=== PATIENT | male | born 1950 | race African-American/Black ===

== ENCOUNTER 2017-09-18 05:52 | Inpatient (IN) | payer MEDICARE, OTHER ==
[2017-09-18 06:30] LABS: AGAP ISTAT 13 mmol/L (6-14); BUN ISTAT 16 mg/dL (8-26); CHLORIDE ISTAT 95 mmol/L (98-110); CREATININE ISTAT 1.3 mg/dL (0.5-1.4); GLUCOSE ISTAT 180 mg/dL (70-99); HEMATOCRIT ISTAT 36 % (37-52); HEMOGLOBIN ISTAT 12.2 g/dL (14-18); ION CA ISTAT 1.08 mmol/L (1.13-1.32); POTASSIUM ISTAT 2.9 mmol/L (3.5-5.0); SODIUM ISTAT 134 mmol/L (135-145); TOT CO2 ISTAT 31 mmol/L (23-32)
[2017-09-18 06:40] LABS: ANION GAP 13 (6-14); BLOOD UREA NITROGEN 17 mg/dL (8-26); BUN/CREATININE RATIO 13 (6-20); CARBON DIOXIDE 29 mmol/L (21-32); CHLORIDE 95 mmol/L (98-107); CREATININE 1.3 mg/dL (0.7-1.3); GLUCOSE 173 mg/dL (70-99); POTASSIUM 3.4 mmol/L (3.5-5.1); SODIUM 137 mmol/L (136-145)
[2017-09-18 06:45] LABS: ALBUMIN 3.3 g/dL (3.4-5.0); ALBUMIN/GLOBULIN RATIO 0.8 (1.0-1.7); ALK PHOS 102 U/L (46-116); ALT (SGPT) 159 U/L (16-63); AST (SGOT) 111 U/L (15-37); TOTAL BILIRUBIN 1.2 mg/dL (0.2-1.0); TOTAL PROTEIN 7.6 g/dL (6.4-8.2)
[2017-09-18] MEDS: POTASSIUM CHLORIDE 20 MEQ TABLET.ER. PO ×4 (06:48→13:42)
[2017-09-18] MEDS: IV NORMAL SALINE 1000ML BAG 1,000 ML IV ×2 (06:49)
[2017-09-18 06:54] LABS: BASO # 0.1 x10^3/uL (0.0-0.2); BASO % 1 % (0-3); EOS % 0 % (0-3); HEMATOCRIT 34.8 % (39.0-53.0); HEMOGLOBIN 12.3 g/dL (13.0-17.5); LYMPH # 2.2 x10^3/uL (1.0-4.8); LYMPH % 11 % (24-48); MEAN CORPUSCULAR HEMOGLOBIN 28 pg (25-35); MEAN CORPUSCULAR HGB CONC 35 g/dL (31-37); MEAN CORPUSCULAR VOLUME 80 fL (79-100); MONO # 2.1 x10^3/uL (0.0-1.1); MONO % 10 % (0-9); NEUT # 16.3 x10^3uL (1.8-7.7); NEUT % 79 % (31-73); PLATELET COUNT 402 x10^3/uL (140-400); RED BLOOD COUNT 4.37 x10^6/uL (4.30-5.70); WHITE BLOOD COUNT 20.7 x10^3/uL (4.0-11.0)
[2017-09-18 07:13] LABS: ADD MAN DIFF? YES
[2017-09-18] MEDS ORDERED: CONTRAST GIVEN MC ×2 (07:15)
[2017-09-18] MEDS: IOHEXOL 300 MG/ML 100ML VIAL. IV ×2 (07:16)
[2017-09-18 07:34] LABS: LACTIC ACID 1.2 mmol/L (0.4-2.0)
[2017-09-18 08:14] LABS: BILIRUBIN,URINE NEGATIVE (NEG); CLARITY,URINE CLEAR; COLOR,URINE YELLOW; GLUCOSE,URINE NEGATIVE (NEG); NITRITE,URINE NEGATIVE (NEG); PH,URINE 5.5; PROTEIN,URINE NEGATIVE (NEG-TRACE)
[2017-09-18 08:28] LABS: INFLUENZA A PATIENT NEGATIVE (NEGATIVE); INFLUENZA B PATIENT NEGATIVE (NEGATIVE); OBC FLU VALID
[2017-09-18 08:35] LABS: BACTERIA,URINE FEW /HPF (0-FEW); RBC,URINE 0 /HPF (0-2); WBC,URINE 20-40 /HPF (0-4)
[2017-09-18] MEDS ORDERED: ONDANSETRON PF 4 MG/2 ML VIAL. IV ×4 (09:00→12:00)
[2017-09-18] MEDS ORDERED: fentaNYL PF VIAL 100 MCG/2 ML VIAL IV ×2 (09:00)
[2017-09-18 11:19] LABS: POC GLUCOSE 142 mg/dL (70-99)
[2017-09-18 11:54] LABS: % BANDS 4 % (0-9); % BASOS 1 % (0-3); % LYMPHS 16 % (24-48); % MONOS 8 % (0-10); % MYELOS 1 % (0-0); % SEGS 70 % (35-66); PLT ESTIMATE ADEQUATE (ADEQUATE); TOXIC VACUOLATION PRESENT
[2017-09-18] MEDS: INSULIN ASPART 300 UNITS/3 ML INSULN.PEN SQ ×6 (12:00→17:09)
[2017-09-18] MEDS ORDERED: HYDROcodone/APAP 5/325MG 1 TAB TABLET PO ×2 (12:00)
[2017-09-18] MEDS ORDERED: DEXTROSE 50% 25 GM / 50ML DISP.SYRIN. IV ×2 (12:00)
[2017-09-18] MEDS ORDERED: diphenhydrAMINE HCL 25 MG CAPSULE PO ×2 (12:00)
[2017-09-18] MEDS ORDERED: LINAGLIPTIN 5 MG TABLET PO ×2 (12:30)
[2017-09-18] MEDS ORDERED: CELECOXIB 100 MG CAPSULE. PO ×2 (12:30)
[2017-09-18] MEDS ORDERED: hydroCHLOROthiazide 25 MG TABLET PO ×2 (12:30)
[2017-09-18] MEDS ORDERED: ASPIRIN ENTERIC COATED 81 MG TABLET.DR. PO ×2 (12:30)
[2017-09-18] MEDS ORDERED: LEVOTHYROXINE 125 MCG TABLET PO ×2 (12:30)
[2017-09-18] MEDS: INSULIN DETEMIR 300 UNITS/3 ML INSULN.PEN. SQ ×4 (13:48→21:32)
[2017-09-18 16:38] LABS: POC GLUCOSE 219 mg/dL (70-99)
[2017-09-18 16:40] LABS: LACTIC ACID 1.8 mmol/L (0.4-2.0)
[2017-09-18] MEDS: ACETAMINOPHEN 325 MG TABLET. PO ×2 (18:22)
[2017-09-18] MEDS: FAMOTIDINE 20 MG TABLET. PO ×2 (21:26)
[2017-09-18] MEDS: FENOFIBRATE,MICRONIZED 134 MG CAPSULE PO ×2 (21:26)
[2017-09-18] MEDS: LACTOBACILLUS RHAMNOSUS GG 1 CAPSULE. PO ×2 (21:26)
[2017-09-18] MEDS: SIMVASTATIN 10 MG TABLET PO ×2 (21:27)
[2017-09-18] MEDS: LOSARTAN POTASSIUM 50 MG TABLET. PO ×2 (21:27)
[2017-09-18 21:43] LABS: POC GLUCOSE 151 mg/dL (70-99)
[2017-09-18] MEDS: EZETIMIBE 10 MG TABLET. PO ×2 (22:27)
[2017-09-19] MEDS: ACETAMINOPHEN 325 MG TABLET. PO ×4 (00:54→12:19)
[2017-09-19 01:58] LABS: ADD MAN DIFF? NO
[2017-09-19] MEDS: IV NORMAL SALINE 1000ML BAG 1,000 ML IV ×6 (01:59→17:05)
[2017-09-19 02:00] LABS: BASO # 0.1 x10^3/uL (0.0-0.2); BASO % 1 % (0-3); EOS % 0 % (0-3); HEMATOCRIT 33.4 % (39.0-53.0); HEMOGLOBIN 11.6 g/dL (13.0-17.5); LYMPH # 2.1 x10^3/uL (1.0-4.8); LYMPH % 13 % (24-48); MEAN CORPUSCULAR HEMOGLOBIN 28 pg (25-35); MEAN CORPUSCULAR HGB CONC 35 g/dL (31-37); MEAN CORPUSCULAR VOLUME 80 fL (79-100); MONO # 1.6 x10^3/uL (0.0-1.1); MONO % 10 % (0-9); NEUT % 76 % (31-73); PLATELET COUNT 400 x10^3/uL (140-400); RED CELL DISTRIBUTION WIDTH 14.9 % (11.5-14.5); WHITE BLOOD COUNT 15.8 x10^3/uL (4.0-11.0)
[2017-09-19] MEDS: LEVOTHYROXINE 125 MCG TABLET PO ×2 (06:29)
[2017-09-19 07:06] LABS: POC GLUCOSE 63 mg/dL (70-99)
[2017-09-19 07:36] LABS: POC GLUCOSE 104 mg/dL (70-99)
[2017-09-19] MEDS: INSULIN DETEMIR 300 UNITS/3 ML INSULN.PEN. SQ ×4 (08:00→21:00)
[2017-09-19] MEDS: INSULIN ASPART 300 UNITS/3 ML INSULN.PEN SQ ×8 (08:00→17:00)
[2017-09-19] MEDS: glipiZIDE ER 2.5 MG TAB.ER.24 PO ×2 (08:24)
[2017-09-19] MEDS: hydroCHLOROthiazide 25 MG TABLET PO ×2 (08:24)
[2017-09-19] MEDS: LACTOBACILLUS RHAMNOSUS GG 1 CAPSULE. PO ×4 (08:25→21:49)
[2017-09-19] MEDS: LINAGLIPTIN 5 MG TABLET PO ×2 (08:25)
[2017-09-19] MEDS: POTASSIUM CHLORIDE 20 MEQ TABLET.ER. PO ×2 (08:25)
[2017-09-19] MEDS: CELECOXIB 100 MG CAPSULE. PO ×2 (08:25)
[2017-09-19] MEDS: cefTRIAXone IV Push 1 GM VIAL. IVP ×2 (08:28)
[2017-09-19] MEDS: ASPIRIN ENTERIC COATED 81 MG TABLET.DR. PO ×2 (08:28)
[2017-09-19 11:15] LABS: POC GLUCOSE 140 mg/dL (70-99)
[2017-09-19 21:43] LABS: POC GLUCOSE 134 mg/dL (70-99)
[2017-09-19] MEDS: FAMOTIDINE 20 MG TABLET. PO ×2 (21:47)
[2017-09-19] MEDS: SIMVASTATIN 10 MG TABLET PO ×2 (21:47)
[2017-09-19] MEDS: FENOFIBRATE,MICRONIZED 134 MG CAPSULE PO ×2 (21:48)
[2017-09-19] MEDS: EZETIMIBE 10 MG TABLET. PO ×2 (21:48)
[2017-09-19] MEDS: LOSARTAN POTASSIUM 50 MG TABLET. PO ×2 (21:48)
[2017-09-20 05:25] LABS: ADD MAN DIFF? NO
[2017-09-20 05:51] LABS: ANION GAP 8 (6-14); BLOOD UREA NITROGEN 13 mg/dL (8-26); CALCIUM 9.3 mg/dL (8.5-10.1); CARBON DIOXIDE 30 mmol/L (21-32); CHLORIDE 99 mmol/L (98-107); CREATININE 1.1 mg/dL (0.7-1.3); GFR 81.3; GLUCOSE 88 mg/dL (70-99); SODIUM 137 mmol/L (136-145)
[2017-09-20 05:54] LABS: POTASSIUM 2.9 mmol/L (3.5-5.1)
[2017-09-20 06:06] LABS: BASO # 0.1 x10^3/uL (0.0-0.2); BASO % 1 % (0-3); EOS # 0.1 x10^3/uL (0.0-0.7); EOS % 1 % (0-3); HEMATOCRIT 35.4 % (39.0-53.0); LYMPH # 2.6 x10^3/uL (1.0-4.8); LYMPH % 19 % (24-48); MEAN CORPUSCULAR HEMOGLOBIN 27 pg (25-35); MEAN CORPUSCULAR HGB CONC 34 g/dL (31-37); MEAN CORPUSCULAR VOLUME 81 fL (79-100); MONO # 1.2 x10^3/uL (0.0-1.1); MONO % 9 % (0-9); NEUT # 9.8 x10^3uL (1.8-7.7); NEUT % 71 % (31-73); PLATELET COUNT 427 x10^3/uL (140-400); RED BLOOD COUNT 4.38 x10^6/uL (4.30-5.70); RED CELL DISTRIBUTION WIDTH 15.3 % (11.5-14.5); WHITE BLOOD COUNT 13.8 x10^3/uL (4.0-11.0)
[2017-09-20] MEDS: IV NORMAL SALINE 1000ML BAG 1,000 ML IV ×2 (06:13)
[2017-09-20] MEDS: LEVOTHYROXINE 125 MCG TABLET PO ×2 (06:14)
[2017-09-20 06:55] LABS: POC GLUCOSE 95 mg/dL (70-99)
[2017-09-20] MEDS: INSULIN ASPART 300 UNITS/3 ML INSULN.PEN SQ ×4 (08:00→12:11)
[2017-09-20] MEDS: INSULIN DETEMIR 300 UNITS/3 ML INSULN.PEN. SQ ×2 (08:00)
[2017-09-20] MEDS: POTASSIUM CHLORIDE 20 MEQ TABLET.ER. PO ×4 (08:16→12:09)
[2017-09-20] MEDS: ASPIRIN ENTERIC COATED 81 MG TABLET.DR. PO ×2 (08:16)
[2017-09-20] MEDS: LACTOBACILLUS RHAMNOSUS GG 1 CAPSULE. PO ×2 (08:16)
[2017-09-20] MEDS: CELECOXIB 100 MG CAPSULE. PO ×2 (08:16)
[2017-09-20] MEDS: hydroCHLOROthiazide 25 MG TABLET PO ×2 (08:17)
[2017-09-20] MEDS: LINAGLIPTIN 5 MG TABLET PO ×2 (08:17)
[2017-09-20] MEDS: glipiZIDE ER 2.5 MG TAB.ER.24 PO ×2 (08:18)
[2017-09-20] MEDS: cefTRIAXone IV Push 1 GM VIAL. IVP ×2 (09:17)
[2017-09-20 11:16] LABS: POC GLUCOSE 182 mg/dL (70-99)
[2017-09-20] MEDS ORDERED: POTASSIUM CHLORIDE 20 MEQ TABLET.ER. PO ×2 (12:19)
[2017-09-21 21:47] LABS: POC GLUCOSE 76 mg/dL (70-99)
== END 2017-09-20 12:45 | disposition home or self-care (01) | DRG 872 ==
LOC: ER 05:52 → 5 SOUTH 08:55
DX: A41.9 Sepsis, unspecified organism (principal); E87.1 Hypo-osmolality and hyponatremia; N39.0 Urinary tract infection, site not specified; E87.6 Hypokalemia; E11.9 Type 2 diabetes mellitus without complications; E78.00 Pure hypercholesterolemia, unspecified; I10 Essential (primary) hypertension; Z82.49 Family history of ischemic heart disease and other diseases of the circulatory system; E89.0 Postprocedural hypothyroidism
CPT/HCPCS: 36415; 70450; 71045; 74177; 80047; 80048; 80053; 81001; 82962; 83605; 84132; 84484; 85007; 85025; 87040; 87086; 87186; 87804; 87804-59; 93005; 96361; 96365; 97110-GP; 97161-GP; 99285; 99285-25; J0690; J0696; J1815; J7030; Q9967

== ENCOUNTER 2017-12-21 10:56 | Emergency (ER) | payer OTHER, MEDICARE ==
[2017-12-21] MEDS: NEOMY/BACITR/POLYMYXIN OINT PACKET. TP (12:11)
[2017-12-21] MEDS: DIPHTH,PERTUSS(ACELL),TET TOX 0.5 ML DISP.SYRIN. VAX IM (12:14)
== END 2017-12-21 14:06 | disposition home or self-care (01) ==
LOC: ER 10:56
DX: S51.812A Laceration without foreign body of left forearm, initial encounter (principal); S81.812A Laceration without foreign body, left lower leg, initial encounter; M25.512 Pain in left shoulder; E11.9 Type 2 diabetes mellitus without complications; I10 Essential (primary) hypertension; E78.00 Pure hypercholesterolemia, unspecified; V43.52XA Car driver injured in collision with other type car in traffic accident, initial encounter; Y93.I9 Activity, other involving external motion; Y92.410 Unspecified street and highway as the place of occurrence of the external cause; Y99.8 Other external cause status
CPT/HCPCS: 73030; 73090; 73130; 73590; 90471; 90715; 99284

== ENCOUNTER → 2018-02-05 | Outpatient (CLI) | payer MEDICARE, OTHER ==
[~2018-02-05] MED LIST: BUPIVACAINE MPF 0.25% 30 ML VIAL.; IOHEXOL 180 MG/ML 10 ML VIAL.; LIDOCAINE 1% PF 2 ML VIAL.; methylPREDNISolone ACETATE 80 MG/ML VIAL.
== END | disposition home or self-care (01) ==
LOC: PNCL 10:02
DX: M19.012 Primary osteoarthritis, left shoulder (principal); I10 Essential (primary) hypertension; E11.9 Type 2 diabetes mellitus without complications; K21.9 Gastro-esophageal reflux disease without esophagitis; I25.10 Atherosclerotic heart disease of native coronary artery without angina pectoris; E78.00 Pure hypercholesterolemia, unspecified; F17.210 Nicotine dependence, cigarettes, uncomplicated; E89.0 Postprocedural hypothyroidism; Z79.4 Long term (current) use of insulin; Z79.899 Other long term (current) drug therapy; Z79.82 Long term (current) use of aspirin; Z72.89 Other problems related to lifestyle
CPT/HCPCS: 20610; 77002; J1040; J3490; Q9965

== ENCOUNTER → 2018-02-26 | Outpatient (CLI) | payer MEDICARE, OTHER | END | disposition home or self-care (01) | LOC: PNCL 10:44 | DX: M19.012 Primary osteoarthritis, left shoulder (principal) | CPT/HCPCS: G0463 ==

== ENCOUNTER → 2018-03-15 | Outpatient (CLI) | payer MEDICARE, OTHER | END | disposition home or self-care (01) | LOC: MRI 15:01 | DX: S43.432A Superior glenoid labrum lesion of left shoulder, initial encounter (principal); S46.812A Strain of other muscles, fascia and tendons at shoulder and upper arm level, left arm, initial encounter; M75.102 Unspecified rotator cuff tear or rupture of left shoulder, not specified as traumatic; I25.10 Atherosclerotic heart disease of native coronary artery without angina pectoris; K21.9 Gastro-esophageal reflux disease without esophagitis; I10 Essential (primary) hypertension; E87.6 Hypokalemia; E11.9 Type 2 diabetes mellitus without complications; E78.00 Pure hypercholesterolemia, unspecified; Z79.82 Long term (current) use of aspirin; Z79.4 Long term (current) use of insulin; Z79.899 Other long term (current) drug therapy; X58.XXXA Exposure to other specified factors, initial encounter; Y93.89 Activity, other specified; Y92.89 Other specified places as the place of occurrence of the external cause; Y99.8 Other external cause status | CPT/HCPCS: 73221 ==

== ENCOUNTER → 2019-01-21 | Outpatient (CLI) | payer MEDICARE, OTHER ==
[2017-12-21 13:30] VITALS: BP 121/61
[~2019-01-21] MED LIST changes: +AMOX1TAB11 PO; +ASPI-482 PO; -BUPIVACAINE MPF 0.25% 30 ML VIAL.; +CELE100C PO; +CYCL10TA2 PO; +EZET10TA48 PO; +FENO145T30 PO; +GLIP10TA24 PO; +HYDR-2145 PO; +INSU100C4 SQ; +INSU100I13 SQ; -IOHEXOL 180 MG/ML 10 ML VIAL.; +LEVO125T5 PO; -LIDOCAINE 1% PF 2 ML VIAL.; +LOSA100T14 PO; +NIFE30TA15 PO; +POTA20TA82 PO; +RANI150T2 PO; +SIMV10TA3 PO; +SITA100T PO; -methylPREDNISolone ACETATE 80 MG/ML VIAL.
--- NOTE | 2019-01-21 16:58 | KCIC ---
MR of the left shoulder HISTORY: Left shoulder pain, chronic. TECHNIQUE: Routine multiplanar sequences are obtained. FINDINGS: Acromioclavicular joint is mildly degenerative. Rotator cuff tendon thickening and signal compatible with tendinosis. Partial-thickness undersurface tear of the anterior supraspinatus tendon measures about 15 mm AP diameter and is 90% deep. This extends from the footplate through the critical zone. No complete full-thickness rupture. Mild interstitial tearing of the subscapularis tendon. Mild subdeltoid bursal effusion. No significant glenohumeral joint effusion. Mild degenerative changes of the glenohumeral joint. Mild degenerative signal within the posterosuperior labrum. No clear-cut labral detachment. Biceps tendon appears intact. No bone destruction or acute fracture. No acute soft tissue abnormality. IMPRESSION: 1. Rotator cuff tendinosis. Deep articular side tear of the supraspinatus tendon, mild subscapularis tendon tear. 2. Posterosuperior labral degeneration. Electronically signed by: James Clark MD (01/21/2019 4:55 PM) [facility]
== END | disposition home or self-care (01) ==
LOC: KCIC MRI 15:43
PROVIDERS: ATTEND Orthopaedic Surgery Sports Medicine
DX: M19.012 Primary osteoarthritis, left shoulder (principal); M75.102 Unspecified rotator cuff tear or rupture of left shoulder, not specified as traumatic; M25.412 Effusion, left shoulder; G89.29 Other chronic pain
CPT/HCPCS: 73221

== ENCOUNTER → 2019-02-25 | Day surgery (SDC) | payer MEDICARE, OTHER ==
[~2019-02-25] VITALS: Ht 177.8 cm; Wt 104.3 kg
[~2019-02-25] MED LIST changes: +0.9 % SODIUM CHLORIDE 20 ML VIAL. IJ ONE; +BUPIVACAINE MPF 0.5% 30 ML VIAL. ONE; +DEXAMETHASONE SOD PHOS 20 MG/5 ML VIAL. ONE; +DEXAMETHASONE SOD PHOS 4 MG/ML VIAL ONE; +DOCU-109 PO; +EPINEPHrine 1 MG/ML VIAL ONE; +EPINEPHrine VIAL 30 MG/30 ML VIAL ONE; +ESMOLOL 100 MG/10 ML VIAL. IVP ONE; +FAMOTIDINE 20 MG/2 ML VIAL ONE; +GLYCOPYRROLATE 1 MG/5 ML VIAL. ONE; +HYDROmorphone 2 MG/ML VIAL IV PRN; +INSULIN LISPRO 100 UNIT/ML 3ML VIAL for OP,RR ONLY. SQ PRN; +IV RINGERS,LACTATED 1000ML 1,000 ML IV SCH; +KETOROLAC 30 MG/ML VIAL. IV ONE; +KETOROLAC 30 MG/ML VIAL. ONE; +LABETALOL 20 MG/4 ML DISP.SYRIN. IVP PRN; +LIDOCAINE 1% 20 ML VIAL. ONE; +LIDOCAINE 1% PF 2 ML VIAL. ID PRN; +LIDOCAINE 2% PF 5 ML VIAL. ONE; +LORA10TA3 PO; +MIDAZOLAM HCL/PF 2 MG/2 ML VIAL. ONE; +MORPHINE SULFATE 2 MG/ML VIAL. IV PRN; +MORPHINE SULFATE 2 MG/ML VIAL. ONE; +NEOSTIGMINE METHYLSULFATE 5 MG/5 ML SYRINGE. ONE; +ONDA8TAB9 PO; +ONDANSETRON PF 4 MG/2 ML VIAL. IV PRN; +ONDANSETRON PF 4 MG/2 ML VIAL. ONE; +OXYC1TAB15 PO; +PHENYLEPHRINE in 0.9% NACL PF 1 MG/10 ML SYRINGE. IV ONE; +PROCHLORPERAZINE 10 MG/2 ML VIAL. IV PRN; +PROPOFOL 20 ML IV ONE; +ROCURONIUM 50 MG/5 ML VIAL. ONE; +SEVOFLURANE 61 TO 120 MINUTES. IH ONE; +ceFAZolin 2GM PREMIX 2 GM/50 ML BAG IV ONE; +fentaNYL PF VIAL 100 MCG/2 ML VIAL IV PRN; +fentaNYL PF VIAL 100 MCG/2 ML VIAL ONE; +hydrALAZINE 20 MG/ML VIAL. IVP PRN; +hydrALAZINE 20 MG/ML VIAL. ONE; +hydroCHLOROthiazide 25 MG TABLET PO ONE; +oxyCODONE/APAP 5/325 1 TAB TABLET PO ONE
--- NOTE | 2019-02-25 08:46 | DISCH ---
DISCHARGE INSTRUCTIONS Condition on Discharge Condition on Discharge: Stable Activity After Discharge Activity Instructions for Disc: No restrictions, Other ROM activity Other activity instructions: arm to remain in sling Driving Instructions after Dis: Do not drive today Weight Bearing Status after Di: Non weight bearing Diet after Discharge Diet after Discharge: Regular, Diabetic No Calorie Level Diet Texture: Regular Wound Incision Care Wound/Incision Care: Ice to area for comfort, Keep wound/cast CDI, Change dressing Other wound/incision instructi: okay to change dressing after 2 days Contacting the DRPamela after DC Call your doctor for: Concerns you may have Follow-Up Follow up with: Sosa in 2 weeks Treatment/Equipment after DC Adaptive Equipment Issued: None SHREE DELGADO II, MD Feb 25, 2019 08:46
--- NOTE | 2019-02-25 08:54 | PDOC4 ---
Operative Note Operative Note Date of procedure: 02/25/2019 Surgeon: Ilia Delgado [employer] Leakage: Deidre Borges, certified adaptive physical educator Preoperative diagnosis: Incomplete left shoulder rotator cuff tear Postoperative diagnosis same Procedure performed: Arthroscopic left shoulder rotator cuff repair Anesthesia: Gen. plus regional nerve block Blood loss: 5 mL Findings: #1 tendinosis and softening at rotator cuff #2 small amount of degenerative fraying of labrum, labrum intact circumferentially #3 small amount of inflammatory changes and biceps, normal-appearing otherwise, intact to labrum #4 unremarkable glenohumeral cartilage #5 no loose bodies Components inserted: Bergman and nephew Helacoil suture anchor �1 Complications: None Reason for procedure: Patient is a very pleasant 69-year-old gentleman with long-standing left shoulder pain who had seen in my outpatient orthopedic surgery clinic. Clinical and radiographic evidence were consistent with the preoperative diagnosis. He had tried and failed conservative therapies including an exercise program and injections and despite this his pain was progressive and we had a discussion of the risks, benefits, and alternatives to the above surgery and he wished to proceed. Description of procedure: Patient was greeted in the preoperative area by myself for the correct extremity was verified and marked. He was taken to the operative suite and his antibiotics were started as he was brought back. Once in the operating room, he was transferred gently supine to the operating room table and secured to the bed with all pressure points padded. He was sat up in a beachchair position with a large pad under his legs. His C-spine was maintained in neutral position. We then proceeded to prep and drape left upper extremity and shoulder girdle in our usual sterile fashion including Ioban at the periphery. Standard preoperative timeout was conducted. I then palpated and marked surface anatomy. I used a spinal needle to localize a posterior superior portal and introduced the blunt arthroscopic trocar into the glenohumeral joint after incising skin. The camera was then introduced and I used a spinal needle to localize an anterosuperior portal, I incised skin in accordance with this and dilated this well. I then introduce my probe and conducted my diagnostic arthroscopy with the above-noted findings. Upon inspecting his rotator cuff, I passed a PDS suture through it using a spinal needle to lopez the area pathologic change. I then repositioned the camera into the subacromial space and created a lateral portal under spinal needle localization as well. I then performed a b ursectomy. There is large amount of hemorrhagic-appearing tissue. After the bursectomy, I identified my PDS suture from the bursal side and was easily able to violate the substance of the rotator cuff with a blunt tipped device. I then remove the PDS suture and used my shaver to debride the rotator cuff, I did not complete the tear all the way as the tendon at this area was not able to be debrided with the shaver. I then prepared my footprint, taking care not to decorticate the area. I then used an awl and then placed my suture anchor. I created an accessory anterolateral portal for suture management shuttled the suture limbs through this. I then used my Bridestory suture passing device to shuttle the suture limbs through in a simple configuration tied these down with arthroscopic knot-tying techniques. His tear was stable to probing and gentle rotation of his arm. I took my final pictures and then removed the excess arthroscopic fluid and instrumentation. His skin was then closed with simple interrupted 2-0 nylon. A sterile bulky dressing was applied. His left upper gently was in place into an abduction pillow sling. He was awakened from anesthesia after being laid supine. He was transferred gently supine to the hospital bed and taken to the PACU in a stable and extubated condition. Postoperative plan is to get him started on physical therapy this week. He'll be nonweightbearing. I will see him back in 2 weeks, sooner should a problem arise. ILIA DELGADO II, MD Feb 25, 2019 08:54
[2019-02-25] MEDS: fentaNYL PF VIAL 100 MCG/2 ML VIAL IV PRN ×3 (09:05→09:50)
[2019-02-25] MEDS: LABETALOL 20 MG/4 ML DISP.SYRIN. IVP PRN ×2 (09:15→09:45)
[2019-02-25 10:50] VITALS: BP 174/82
== END ==
LOC: SURG 05:42
PROVIDERS: ATTEND Orthopaedic Surgery Sports Medicine
DX: M75.112 Incomplete rotator cuff tear or rupture of left shoulder, not specified as traumatic (principal); M24.112 Other articular cartilage disorders, left shoulder; E11.9 Type 2 diabetes mellitus without complications; I10 Essential (primary) hypertension; E89.0 Postprocedural hypothyroidism; E78.5 Hyperlipidemia, unspecified; F17.210 Nicotine dependence, cigarettes, uncomplicated; Z79.899 Other long term (current) drug therapy; Z98.890 Other specified postprocedural states; Z79.82 Long term (current) use of aspirin; Z79.84 Long term (current) use of oral hypoglycemic drugs
CPT/HCPCS: 29827; 36415; 82306; 82962; A7015; C1713; C1782; J0171; J0360; J0696; J1100; J1885; J2001; J2250; J2270; J2370; J2405; J2704; J2710; J3010; J3490; J7120